=== PATIENT | male | born 1960 | race Caucasian/White ===

== ENCOUNTER → 2017-11-03 | Outpatient (CLI) | payer OTHER ==
[~2017-11-03] MED LIST: DICL75TA PO; HYDR-3580 PO; PENI500T PO; TRAM50TA PO; Z.0.NO CURRENT MEDS
[2017-11-03 10:40] LABS: BASOPHIL % 0.5 % (0.0-2.0); EOSINOPHIL # 0.1 TH/MM3 (0-0.4); EOSINOPHIL % 1.6 % (0.0-4.0); HEMOGLOBIN 16.1 GM/DL (13.0-17.0); LYMPH % 37.6 % (9.0-44.0); LYMPHOCYTE # 2.2 TH/MM3 (1.0-4.8); MEAN CELL VOLUME 93.1 FL (80.0-100.0); MEAN CORPUSCULAR HEMOGLOBIN 32.5 PG (27.0-34.0); MEAN CORPUSCULAR HGB CONC 34.9 % (32.0-36.0); MEAN PLATELET VOLUME 8.4 FL (7.0-11.0); MONO % 8.4 % (0.0-8.0); MONOCYTE # 0.5 TH/MM3 (0-0.9); NEUT % 51.9 % (16.0-70.0); PLATELET COUNT 205 TH/MM3 (150-450); RED BLOOD COUNT 4.94 MIL/MM3 (4.50-5.90); RED CELL DISTRIBUTION WIDTH 12.8 % (11.6-17.2); WHITE BLOOD COUNT 5.8 TH/MM3 (4.0-11.0)
[2017-11-03 10:45] LABS: BILIRUBIN, URINE NEG (NEG); BLOOD, URINE NEG (NEG); GLUCOSE,URINE NEG (NEG); HYALINE CAST, URINE 1 /lpf (RARE); KETONE, URINE NEG (NEG); MUCUS URINE FEW /lpf (OCC); NITRITE,URINE NEG (NEG); URINE COLOR LIGHT-YELLOW (YELLW/STRAW); URINE LEUKOCYTE ESTERASE NEG (NEG)
--- NOTE | 2017-11-03 10:59 | RADRPT ---
EXAM DATE/TIME: 11/03/2017 10:43 [facility] COMPARISON: No previous studies available for comparison. INDICATIONS : Evaluate for pneumoina, pneumothorax per op for hip surgery. MEDICAL HISTORY : None. SURGICAL HISTORY : None. ENCOUNTER: Initial ACUITY: 1 day PAIN SCORE: 0/10 LOCATION: Bilateral chest FINDINGS: PA and lateral views of the chest demonstrate the lungs to be symmetrically aerated without evidence of mass, infiltrate or effusion. The cardiomediastinal contours are unremarkable. Osseous structure s are intact. CONCLUSION: Normal examination. Demetrius Gordon MD on November 03, 2017 at 10:59 Board Certified Radiologist. This report was verified electronically.
[2017-11-03 11:03] LABS: BICARBONATE 28.5 MEQ/L (21.0-32.0); CALCIUM 9.3 MG/DL (8.5-10.1); CREATININE 1.03 MG/DL (0.60-1.30)
--- NOTE | 2017-11-04 08:49 | EKG ---
Date Performed: 11/03/2017 Time Performed: 10:14:23 PTAGE: 57 years EKG: Sinus rhythm WITH FIRST DEGREE AV BLOCK ABNORMAL ECG NO PREVIOUS TRACING DOCTOR: Anila Malone Interpretating Date/Time 11/04/2017 08:48:10
== END ==
LOC: CPRE 09:45
PROVIDERS: ATTEND Orthopaedic Surgery
DX: Z01.810 Encounter for preprocedural cardiovascular examination (principal); Z01.811 Encounter for preprocedural respiratory examination; Z01.812 Encounter for preprocedural laboratory examination; M79.609 Pain in unspecified limb; M16.11 Unilateral primary osteoarthritis, right hip; R94.31 Abnormal electrocardiogram [ECG] [EKG]
CPT/HCPCS: 36415; 71046; 80048; 81001; 85025; 85610; 93005

== ENCOUNTER 2017-11-09 06:33 | Inpatient (IN) | payer OTHER ==
--- NOTE | 2017-11-07 16:26 | MH ---
cc: Farshad eMad MD, Norman B MD DATE OF ADMISSION: 11/09/2017 ADMISSION DIAGNOSIS: Severe arthritis of the right hip, pain right hip, gait disturbance. HISTORY OF PRESENT ILLNESS: The patient is a 57-year-old white male who has experienced of his right hip with greater than 1-year duration. He had noted the gradual onset of his symptoms unrelated to injury. He had been accustomed to playing racGatheredtable on a routine basis, at least 3 days per week, as part of an exercise program, but subsequently had to modify this routine because of his symptoms which became more pronounced with the passage of time. He had undergone previous medical evaluation with his primary care physician at which time an MRI scan was completed and the patient was prescribed both Celebrex and tramadol as a substitute for the Aleve that he had been taking. He found the medication to be of some limited benefit while remaining symptomatic with pain about his right hip radiating into the groin area. There had been no associated bowel or bladder incontinence, no numbness or tingling. He presented to the undersigned physician in May of this past year and, at that time, his MRI scan findings were reviewed that reported osteoarthritic changes of a moderately to severe level involving the superior aspect of the joint space with associated chondromalacia. The possibility of a subchondral insufficiency type fracture of the femoral head was also noted with a moderate joint effusion and a degenerative type superior and posterior labral tear. X-ray studies did confirm significant narrowing about the joint space with deformation of the femoral head. Findings and treatment options were reviewed with the patient at that time. The pros and cons of continuing with conservative management versus operative intervention that would involve a total hip arthroplasty were outlined in detail. Emphasis was made regarding the fact that the decision to proceed with surgery would be left entirely to the patient's discretion. It was suggested that he might consider a fluoroscopic injection of his right hip prior to considering operative treatment. The patient did actually complete a fluoroscopic injection for which he was able to report a definite improvement of his pain about the hip and was thereafter trying to conform to his daily routine as well as limited exercise activities. He was continuing to take Celebrex on a p.r.n. basis. He indicated that he would continue with conservative management, given his improvement that he had noted. He returned to the office in October of this year reporting that with the passage of time he was becoming progressively more symptomatic with pain that was beginning to definitely interfere with all ambulatory activities as well as his ability to sleep comfortably through the night. He was aware of a frequent grinding sensation of his right hip for which he was taking tramadol for pain management with minimal benefit being noted. 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 His more current x-ray study revealed severe degenerative changes with collapse of the femoral head and [id number] apposition about the joint space with some suggestion for a bony fragment about the lateral aspect of the acetabulum. These findings and treatment options were reviewed with the patient. Once again, it was emphasized that the decision to proceed with surgery would be left entirely to his discretion. He was prescribed hydrocodone for pain management. The patient indicated that he was becoming significantly incapacitated with regards to his daily routine and did not feel that continuing with conservative modalities would prove to be of any appreciable benefit. Given the progressive nature of his symptoms, his associated incapacitation regarding all activities of daily living and the difficulty that he was encountering regarding his ability to continue in his professional career as described above, he indicated his preference to proceed with surgery as discussed. In compliance with his wishes, he was scheduled for admission at this time in order that the above be accomplished. PAST MEDICAL HISTORY, HOSPITALIZATIONS AND SURGERIES: Includes an appendectomy. The patient denies active medical illnesses. MEDICATIONS: Current have included diclofenac 75 mg twice daily, tramadol 50 mg 4 times daily, and hydrocodone 7.5 mg 4 times daily. ALLERGIES: THE PATIENT DENIED ANY NO KNOWN DRUG ALLERGIES. REVIEW OF SYSTEMS: He wears glasses for reading purposes. He denies headache, seizure or syncope. No sinus congestion or epistaxis. Auditory acuity intact. No tinnitus. No bleeding gums or dysphagia. Denies cough, shortness of breath, upper respiratory infection, pneumonia or tuberculosis. No angina or heart disease. His appetite is good. Bowel movements are regular. No hepatitis, gallbladder disease, ulcers or hemorrhoids. No urinary tract infection. No kidney stones. No prostate disease. Fracture of the right hand treated nonoperatively. No psychiatric illness. His remaining review of systems is unremarkable and noncontributory. FAMILY HISTORY: The patient has been 22 years. His is 54 years of age and described as being in good health. No children. Family history is positive for hypertension, heart disease, liver disease, skin cancer and brain cancer of undetermined etiology. SOCIAL HISTORY: The patient completed 2 years of college education. 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 He denies active use of tobacco. Ethanol consumption on a social basis. PHYSICAL EXAMINATION: VITAL SIGNS: Height 6 feet, weight 277 pounds. GENERAL: An alert, oriented and responsive 57-year-old white male who sits quietly upon the examination table with mild distress as related to pain about his right hip. HEENT: Pupils are equally round and reactive to light. Extraocular movements full. Sclerae are clear. External nares clear. External auditory canals clear. Dental intact. Mucous membranes pink and moist. Pharynx clear. NECK: Supple. Active range of motion without appreciable pain. Carotid pulse palpable bilaterally. Trachea midline. Thyroid without enlargement. LUNGS: Clear to auscultation and percussion. No CVA tenderness. No discomfort throughout the dorsolumbar spine. HEART: Regular rhythm, no murmur or gallop. ABDOMEN: Soft, nontender. Bowel sounds present. RECTAL: Per primary care physician. EXTREMITIES: Right hip - There is no localizing tenderness about the lateral aspect of the right hip. There is restricted and guarded mobility of the hip joint in all ranges assessed with pain at the extreme of motion and associated crepitation elicited about the joint space. Straight leg raising is unremarkable at 80 degrees. Yoel sign is positive. Pronounced antalgic gait. NEUROLOGIC: Cranial nerves II-XII grossly intact. IMPRESSION: Severe osteoarthritis of the right hip; pain, right hip and gait disturbance. PLAN: Right total hip arthroplasty. The nature of the planned surgical procedure, the potential complications and risks associated, the expectations of surgery and the consent form were thoroughly reviewed with the patient prior to his admission to the hospital. Arthur has indicated his full understanding regarding all of the above and given consent to proceed with treatment as outlined. Medical evaluation and clearance for surgery will be completed by his primary care physician, Dr. Christine Wiggins. MD MACI Duran/SA/rh , 05:22 PM , 07:58 PM
[~2017-11-09] VITALS: Ht 182.9 cm; Wt 125.2 kg
[~2017-11-09 06:33] MED LIST changes: -PENI500T PO; -Z.0.NO CURRENT MEDS
[2017-11-09] MEDS ORDERED: POVIDONE IODINE 5% (ANTISEPSIS KIT) 4 APPLICATIONS EACH NARE PRN (07:15)
[2017-11-09] MEDS ORDERED: CHLORHEXIDINE GLUCONATE 2 % 1 PACK (2 CLOTHS) TOPICAL PRN (07:15)
[2017-11-09] MEDS ORDERED: POVIDONE IODINE 7.5% SCRUB 118 ML BOTTLE TOPICAL SCH (07:15)
[2017-11-09] MEDS ORDERED: LACTATED RINGER'S 1000 ML IV PRN (07:15)
[2017-11-09] MEDS ORDERED: METOPROLOL TARTRATE 25 MG TAB PO PRN (07:15)
[2017-11-09] MEDS ORDERED: SODIUM CHLORID 0.9% 500 ML IV PRN (07:15)
[2017-11-09] MEDS ORDERED: ceFAZolin 2 GM PREMIX 50 ML IV SCH (07:15)
[2017-11-09] MEDS ORDERED: ceFAZolin INJ 1,000 MG VIAL ONE (07:50)
[2017-11-09] MEDS ORDERED: KETAMINE HCL 10 MG/5 ML SYRINGE IV PUSH ONE (09:30)
[2017-11-09] MEDS ORDERED: ACETAMINOPHEN 1000 MG/100 ML 100 ML IV ONE (09:30)
[2017-11-09] MEDS ORDERED: PROPOFOL 500 MG/50 ML INJ 0 ML ONE (09:31)
[2017-11-09] MEDS ORDERED: TRANEXAMIC ACID 1 GM PRIOR TO PROCEDURE IV SCH ×2 (10:00)
[2017-11-09] MEDS ORDERED: PROPOFOL 500 MG/50 ML INJ 100 ML ONE ×2 (10:19→11:38)
[2017-11-09] MEDS ORDERED: DEXAMETHASONE SOD PHOS 4 MG/ML VIAL IV ONE (12:00)
[2017-11-09] MEDS ORDERED: PHENYLEPH/NS 1000 MCG/10 ML SYR IV ONE (12:00)
[2017-11-09] MEDS ORDERED: PHENYLEPHRINE HCL 10 MG/ML VIAL IV ONE (12:00)
[2017-11-09] MEDS ORDERED: PROPOFOL 200 MG/20 ML AMP IV ONE (12:00)
[2017-11-09] MEDS ORDERED: ePHEDrine/NS 25 MG/5 ML SYRINGE IV ONE (12:00)
[2017-11-09] MEDS ORDERED: LACTATED RINGER'S 1000 ML INJ 2,000 ML IV ONE (12:00)
[2017-11-09] MEDS ORDERED: ONDANSETRON HCL 4 MG/2 ML VIAL IV ONE (12:00)
[2017-11-09] MEDS ORDERED: MIDAZOLAM HCL 2 MG/2 ML VIAL ONE (12:57)
[2017-11-09] MEDS ORDERED: TRANEXAMIC ACID 1 GM POST-OP IV SCH ×2 (13:00)
[2017-11-09] MEDS ORDERED: DOCUSATE SODIUM 100 MG CAP PO PRN (13:15)
[2017-11-09] MEDS ORDERED: PROMETHAZINE INJ 25 MG/ML VIAL IM PRN (13:15)
[2017-11-09] MEDS ORDERED: Post-op Orders (for Pharmacy) XX ONE (13:15)
[2017-11-09] MEDS ORDERED: NALOXONE HCL 0.4 MG/ML AMP IV PUSH PRN (13:15)
[2017-11-09] MEDS ORDERED: ACETAMINOPHEN/HYDROcodone 325 MG/5 MG TAB PO PRN (13:15)
[2017-11-09] MEDS ORDERED: ACETAMINOPHEN 325 MG TAB PO PRN (13:15)
[2017-11-09] MEDS ORDERED: TRANEXAMIC ACID INJ 1,000 MG in SODIUM CHLORIDE 0.9% INJ 100 ML IV SCH (13:15)
[2017-11-09] MEDS ORDERED: ONDANSETRON HCL 4 MG/2 ML VIAL IVP PRN (13:15)
[2017-11-09] MEDS ORDERED: MISCELLANEOUS PHARMACY INFORMATION XX ONE (13:15)
[2017-11-09] MEDS: DEXT 5%-NACL 0.45% 1000 ML INJ 1,000 ML IV SCH ×2 (13:20→22:47)
[2017-11-09] MEDS: MORPHINE SULFATE 30 MG/30 ML PCA IV SCH ×2 (13:20→23:13)
--- NOTE | 2017-11-09 13:41 | RADRPT ---
EXAM DATE/TIME: 11/09/2017 13:12 [facility] COMPARISON: CHEST PA & LAT, November 03, 2017, 10:43. INDICATIONS : Post op right total hip replacement. MEDICAL HISTORY : None. SURGICAL HISTORY : None. ENCOUNTER: Initial ACUITY: 1 day PAIN SCORE: 1/10 LOCATION: Right Hip FINDINGS: The patient is post right hip arthroplasty. Orthopedic hardware is in excellent position. The alignme nt is good. CONCLUSION: 1. Post right hip arthroplasty. Orthopedic hardware is in excellent position. Russ Faria MD on November 09, 2017 at 13:39 Board Certified Radiologist. This report was verified electronically.
--- NOTE | 2017-11-09 13:59 | MP ---
cc: Farshad Mead MD DATE OF OPERATION: 11/09/2017 DATE OF OPERATION: 11/09/2017 PREOPERATIVE DIAGNOSES: Severe osteoarthritis of the right hip, pain right hip and gait disturbance. POSTOPERATIVE DIAGNOSES: Severe osteoarthritis of the right hip, pain right hip and gait disturbance. PROCEDURE PERFORMED: Right total hip arthroplasty. SURGEON: Adrianna Mead MD ANESTHESIA: Spinal. INDICATION FOR PROCEDURE: This is a 57-year-old white with a 1-year history of right hip pain, possibly being related to exercise, activity, playing racquetball without a direct injury to the hip occuring. Previous evaluation completed by his primary care physician with an MRI scan reporting osteoarthritic changes of a moderate to severe nature with the possiblity of a subchondral insufficiency type fracture. The patient was initially treated by his primary care physician, which included Celebrex and tramadol as oral medication with continued pain being noted. He later underwent orthopedic evaluation and at that time the diagnosis of osteoarthritis of his hip was confirmed. The patient elected to continue with conservative management, which included a fluoroscopic intraarticular steroid injection that afforded him only temporary relief. 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 He continued to take Celebrex but noted ongoing difficulty as related to all weightbearing activites, as well as his symptoms beginning to interfere with sleep. He has been seen in the office in more recent followup and at that time, his current x-ray studies revealed severe degenerative changes with collapse of the femoral head and [id number] aposition about the joint space with a suggestion for a bony fragment about the lateral aspect of the acetabulum. Findings and treatment options were again reviewed. Emphasis was made that the decision to proceed with surgery involving total hip arthroplasty would be left entirely to the patient's discretion. The patient readily indicated that given his degree of pain and limitations, he was ready to proceed with surgery as discussed and in compliance with his wishes, he was scheduled for admission at this time in order that the above be accomplished. DESCRIPTION OF PROCEDURE: Following the induction of satisfactory spinal anesthesia as completed per the Department of Anesthesia, the patient was positioned upon the operating table in a left lateral decubitus fashion. The right hip and lower extremity proper were isolated with a U-drape, thereafter being prepped with Betadine solution and draped into a sterile field in the routine manner. Prior to initiation of the actual procedure, the standard timeout protocol was completed. All parameters were appropriately addressed and confirmed by operating room personell. A standard posterolateral approach to the hip was initiated through a sharp skin incision and developed through underlying subcutaneous tissue with hemostasis maintained by electrocautery. By deepending dissection, the fascia overlying the gluteus musculature was exposed and thereafter sharply divided with the Bovie on cutting current. Progressive dissection facilitated exposure of the short external rotator structures. The piriformis tendon was utilized as an anatomical landmark and division of these structures was completed in a superior to inferior orientation and reflected medially, exposing the posterior capsule. The sciatic nerve was protected. An L-shaped capsulotomy was accomplishes, which a posterior dislocation of the femoral head was completed. Examination revealed severe degenerative changes with obvious deformity of the femoral head and prominent hypertrophic bony reaction. The femoral template was positioned for alignment orientation. The neck was scored and thereafter divided with power saw. The amputated segment being passed to the back table to surgical speciment. Attention was initially directed to the proximal femur. Cancellous bone was harvested. The tapered reamer was inserted for alignment orientation. Sequential rasping and broaching was accomplished from 7 through 14 mm with the calcar tony being utilized at the 14 mm stage. The 14 mm stem was determined to be a favorable fit. The trial component being removed, attention was redirected to the acetabulum. The labrum and reactive soft tissue were sharply excised. Progressive reaming was thereafter accomplished from 50 through 63 mm with the 64 trial shell positioned and determined to be satisfactory. Trial components being removed, the wound was copiously irrigated with pulsating antibiotic solution. Hemostasis maintained by electrocautery. Harvested cancellous bone was digitally impacted into the depths of the acetabulum and thereafter a 64 mm RingLoc acetabular shell was firmly seated in approximately 45 degrees inclination to the horizontal and slight anteversion. A single 25 mm 6.5 cancellous screw was inserted superiorly to augment fixation. The permanent hollow acetabular liner was afixed to the acetabular shell. Attention returned to the proximal femur. The trial femoral broach was repositioned and a trial reduction followed utilizing a 36 mm modular head with -6 mm neck length adaptor. The hip readily reduced and was carried through a passive range of motion with stability demonstrated at 90 degrees flexion and 45 degrees internal rotation. An open dislocation was completed, the trial femoral compents being removed, the canal was thoroughly irrigated and dried and thereafter a size 14 Echo Bi-[employer] standard femoral stem was firmly seated to which a 36 mm ceramic head with -6 mm neck length adaptor attached. An open reduction completed and repeat range of motion again noted stability as previously described. Final irrigation was accomplished with hemostasis maintained. The posterior capsule was repaired with 0 Vicryl suture. Piriformis tendon and short external rotator structures were reapproximated in a similar manner. Hemovac drain tubes were inserted through superior stab wounds. The fascia of the gluteus musculature was reapproximated with a running 0 Vicryl suture. Remaining portion of the wound was closed in layers in the routine manner. Skin margins being reapproximated with a running subcuticular 3-0 Vicryl suture over which Steri-Strips were applied. Xeroform gauze and a bulky dry sterile dressing placed. The patient was repositioned into a supine orientation, where an abduction splint was attached, anesthesia was discontinued and he was thereafter transferred to a hospital bed and returned to the recovery room in satisfactory condition, having tolerated the operative procedure well. Estimated blood loss was approximately 800 mL. All implants were of the [employer] drug abuse social worker. MD MACI Duran/MARLEE , 01:00 PM , 01:57 PM
[2017-11-09] MEDS: PCA - TOTAL MG MORPHINE DELIVERED PER SHIFT SCH ×2 (14:00→22:52)
--- NOTE | 2017-11-09 15:11 | PD.CONS ---
HPI Service [facility] Hospitalists Consult Requested By Primary Care Physician Christine Wiggins D.O. Diagnoses: History of Present Illness 57 yo man with no medical problems admitted for right TAMRA due to OA. Pt seen in [facility] and doing very well. He is stable from cardiopulmonary standpoint. Getting ivf and urine output being monitored. Pain is controlled. Review of Systems Other had right hip pain Past Family Social History Past Medical History right hip OA. s/p right tamra today 11/09 hx appendectomy Reported Medications Diclofenac Sodium DR (Diclofenac Sodium) 75 Mg Tabdr 75 Mg PO BID Tramadol (Tramadol HCl) 50 Mg Tab 50 Mg PO Q6H PRN Hydrocodone-Acetaminophen 7.5 Mg-325 Mg Tab 1 Tab PO Q6H PRN Allergies: Coded Allergies: No Known Allergies (Verified Allergy, Mild, 11/09/17) Family History nc Social History no tobacco social etoh Physical Exam Vital Signs heart reg lung cta abd s/nt ext no edema Vital Signs Date Time Temp Pulse Resp B/P (MAP) Pulse Ox O2 Delivery O2 Flow Rate FiO2 11/09/17 13:20 20 11/09/17 08:14 98.8 84 16 159/107 (124) 96 Assessment and Plan Problem List: (1) Status post total hip replacement, right ICD Codes: Z96.641 - Presence of right artificial hip joint Status: Acute Plan: 1. right total hip arthroplasty. OA dvt prophylaxis. xarelto inc spirometer PT daily pain control. prn norco, morphine supervisor fitting ivf. monitor urine output. plan for hhc/pt Efrain Morley MD Nov 09, 2017 15:11
[2017-11-09 17:00] VITALS: BP 132/73; PULSE 80; RESP 17; TEMP 96.4; O2SAT 94
[2017-11-09 20:20] VITALS: BP 119/74; PULSE 74; RESP 18; TEMP 96.1; O2SAT 94
[2017-11-09] MEDS ORDERED: ZOLPIDEM TARTRATE 5 MG TAB PO PRN (21:00)
[2017-11-10] VITALS (7 sets, daily range): BP systolic 104–137; BP diastolic 65–90; PULSE 81–97; RESP 17–18; TEMP 97.2–100.1; O2SAT 94–96
[2017-11-10] MEDS: DEXT 5%-NACL 0.45% 1000 ML INJ 1,000 ML IV SCH ×3 (05:30→21:30)
[2017-11-10] MEDS: PCA - TOTAL MG MORPHINE DELIVERED PER SHIFT SCH ×3 (05:41→21:56)
[2017-11-10] MEDS ORDERED: HYDR-3516 PO (06:22)
[2017-11-10] MEDS ORDERED: ASPI-183 PO (06:22)
--- NOTE | 2017-11-10 06:24 | HHI.FF ---
Face to Face Verification Diagnosis: (1) Degenerative joint disease of right hip Physical Therapy Gait training Hip: Total hip, Protocol: Right, Abduction pillow while in bed, Progress to weight bearing Right LE Weight Bearing: WB as tolerated Right LE Range of Motion: Active ROM Nursing Dressing Changes: Daily dressing change I have seen patient Arthur Reyes on 11/10/17. My clinical findings support the need for the requested home health care services because: Limited ability to care for self High risk of falls I certify that my clinical findings support that this patient is homebound because: Post-op weakness Unsteady gait/balance Unsafe to leave home unassisted Farshad Mead MD Nov 10, 2017 06:24
[2017-11-10] MEDS ORDERED: ADJUSTABLE COMM1 MIS (06:27)
[2017-11-10] MEDS ORDERED: WALKER WHEELS/F1 MIS (06:27)
[2017-11-10 06:55] LABS: HEMATOCRIT 35.6 % (39.0-51.0); HEMOGLOBIN 12.6 GM/DL (13.0-17.0)
[2017-11-10] MEDS: ACETAMINOPHEN/HYDROcodone 325 MG/5 MG TAB PO PRN ×3 (07:39→21:54)
[2017-11-10] MEDS ORDERED: INFLUENZA VIRUS VACCINE (QUADRIVALENT) 0.5 ML SYR IM ONE (10:00)
[2017-11-10] MEDS: RIVAROXABAN 10 MG TAB PO SCH (12:32)
[2017-11-11] MEDS: PCA - TOTAL MG MORPHINE DELIVERED PER SHIFT SCH (04:10)
[2017-11-11] MEDS: DEXT 5%-NACL 0.45% 1000 ML INJ 1,000 ML IV SCH ×2 (04:10→10:12)
[2017-11-11] MEDS: ACETAMINOPHEN/HYDROcodone 325 MG/5 MG TAB PO PRN ×2 (04:40→09:24)
--- NOTE | 2017-11-11 06:49 | MD ---
cc: Farshad Mead MD, Dina M DO DATE OF DISCHARGE: 11/11/2017 ADMITTING DIAGNOSIS: Severe arthritis of the right hip, pain right hip and gait disturbance. DISCHARGE DIAGNOSIS: Severe arthritis of the right hip, pain right hip and gait disturbance. HISTORY: This is a 57-year-old white male with a greater than one year history of pain involving his right hip. He had noted the gradual onset of his symptoms unrelated to injury, but he had been accustomed to playing [employer] on a routine basis at least 3 days per week as part of an exercise program. He subsequently had to modify this routine because of symptoms involving the hip area that became more pronounced with the passage of time. He had undergone previous medical evaluation with his primary care physician at which time an MRI scan was completed and the patient was prescribed Celebrex and Tramadol as a substitute for Aleve that he had been taking. He found the medication to be of limited benefit while remaining symptomatic with pain about the hip radiating into the groin area. There had been no associated bowel or bladder incontinence. No numbness or tingling. He presented to the undersigned physician in May this past year and at that time the findings of his MRI scan were reviewed that reported osteoarthritic changes of a moderate to severe level especially involving the superior aspect of the joint space associated with chondromalacia. The possibility of a subchondral insufficiency type fracture of the femoral head was also noted, the above being associated with a moderate joint effusion of a degenerative type superior and posterior to the labral tear. Findings and treatment options were reviewed with the patient at that time. The pros and cons of continuing with conservative management versus operative intervention that would involve a total hip arthroplasty were outlined in detail. Emphasis was made regarding the fact that the decision to proceed with surgery was left entirely to the patient's discretion. Recommendation was made to proceed with a fluoroscopic injection of the right hip prior to considering any form of operative treatment. The patient did complete the injection treatment which reported a definite improvement of his pain for a temporary period of time. He continued to take Celebrex on an as needed basis and try to conform to conservative management with limited exercise activities. He returned to the office in October of this year reporting that with the passage of time he was becoming progressively more symptomatic with pain that was beginning to interfere with all ambulatory activities as well as sleeping comfortably through the night. He was aware of a frequent grinding sensation of his right hip for which he was continuing to take Tramadol for pain management. 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 His current x-ray studies revealed severe degenerative changes with collapse of the femoral head and [id number] apposition about the joint space with suggestion for bony fragmentation about the lateral aspect of the acetabulum. These findings and treatment options were reviewed. Once again, the emphasis was made regarding the fact that any decision to proceed with surgery would be left entirely to the patient's discretion. He was prescribed hydrocodone for pain management. He indicated that he was becoming significantly more incapacitated with regards to his daily routine and felt that continued conservative modalities would not prove to be of any long-term benefit. Given the progressive nature of his pain and limitations, he was ready to proceed with surgery as previously discussed and in compliance with his wishes, he was scheduled for admission at this time in order that the above be accomplished. Physical examination at the time of admission revealed no localizing tenderness about the lateral aspect of the right hip. There was restricted and guarded mobility of the hip joint in all ranges assessed especially involving internal rotation and pain at the extremes of motion. Straight leg raising was unremarkable at 80 degrees. Yoel's sign positive. Pronounced antalgic gait. HOSPITAL COURSE: Prior to admission to the hospital, the patient had a medical evaluation and clearance for surgery as completed by his primary care physician Dr. Christine Wiggins. He was taken to the operating room on 11/09/2017 and on that date underwent a right total hip arthroplasty completed in an uncomplicated manner. The patient was noted to have tolerated his operative procedure well. Hemoglobin and hematocrit assessment postoperatively was 12.6 and 35.6 respectively. The patient was progressively mobilized under the guidance of physical therapy being permitted weight-bearing to tolerance about the right lower extremity. Followup examination of his surgical wound noted to be intact healing favorable and no evidence of infection. Medical followup per the hospitalist service. DVT prophylaxis initiated. Home Health Aid consult to assist with discharge planning. The patient had indicated his desire to be discharged home and continue his rehabilitation on an outpatient basis. Plans were finalized in this regard and pending medical clearance, he was scheduled for discharge on the second postoperative day at which time he was noted to be making favorable progress with regards to his initial rehab program. He was scheduled to be seen in office followup in approximately 4 weeks. His condition at the time of discharge was stable. Prognosis is favorable. DISCHARGE MEDICATIONS: 1. Hydrocodone 5/325 #60. 2. Aspirin 325 mg 1 tablet twice a day for 4 weeks x #60. MD MACI Duran/DL , 06:22 AM , 06:47 AM
[2017-11-11 08:00] VITALS: BP 140/68; PULSE 80; RESP 16; TEMP 98.4; O2SAT 97
[2017-11-11] MEDS: RIVAROXABAN 10 MG TAB PO SCH (11:58)
== END 2017-11-11 12:13 | disposition home health service (06) | DRG 470 ==
LOC: HSDI 06:33 → N06A 16:57
PROVIDERS: ADMIT Orthopaedic Surgery; ATTEND Orthopaedic Surgery
PROC: 0SR903A Replacement of Right Hip Joint with Ceramic Synthetic Substitute, Uncemented, Open Approach (ICD-10-PCS; principal; 2017-11-09 09:40)
DX: M16.11 Unilateral primary osteoarthritis, right hip (principal); Z23 Encounter for immunization; Z90.49 Acquired absence of other specified parts of digestive tract
CPT/HCPCS: 73501; 85014; 85018; 86850; 86900; 86901; 88304; 88305; 88311; 90686; 94150; C1776; J0131; J0690; J1100; J2250; J2270; J2370; J2405; J3010; J7120; Q2038